=== PATIENT | female | born 1990 | race Two or more races ===

== ENCOUNTER 2019-02-27 14:37 | Emergency (ER) | payer SELFPAY ==
[2019-02-27] MEDS ORDERED: Albuterol 6.7 GM Inhaler INH ONE ×2 (15:05→15:31)
[2019-02-27] MEDS ORDERED: Codeine/Promethazine 10-6.25 MG/5 ML Syrup 5 ML UD Cup PO ONE (16:27)
[2019-02-27] MEDS ORDERED: cefTRIAXone 1 GM, Lidocaine 1% 2.1 ML IM SCH ×2 (16:30)
--- NOTE | 2019-02-27 16:33 | EDM.PDOC ---
ED HPI GENERAL MEDICAL PROBLEM - General Chief Complaint: Fever Stated Complaint: CHEST PAIN, FEVER Time Seen by Provider: 02/27/19 14:42 Source of Information: Reports: Patient, Family History Limitations: Reports: No Limitations - History of Present Illness INITIAL COMMENTS - FREE TEXT/NARRATIVE: The patient presents with a cough, fever, chest tightness and shortness of breath. This has been going on for about 5 days. She also has congestion and runny nose. She has a sore throat. She does not smoke. She has no history of asthma or COPD. Onset: Gradual Duration: Day(s): (5) Location: Reports: Chest Quality: Reports: Other (tightness) Severity: Mild Improves with: Reports: None Worsens with: Reports: None Associated Symptoms: Reports: Cough, Fever/Chills, Shortness of Breath. Denies : Chest Pain, Headaches, Nausea/Vomiting Chest Pain Score (Numeric/FACES): 7 - Related Data Allergies Allergy/AdvReac Type Severity Reaction Status Date / Time No Known Allergies Allergy Verified 02/27/19 14:47 Home Meds: Home Meds Codeine/Promethazine [Phenergan with Codeine] 5 - 10 ml PO Q6HR PRN #300 ml [Rx] Doxycycline [Vibramycin] 100 mg PO BID #14 cap 02/27/19 [Rx] Past Medical History - Past Health History Medical/Surgical History: Denies Medical/Surgical History Social & Family History - Tobacco Use Smoking Status *Q: Never Smoker - Recreational Drug Use Recreational Drug Use: No ED ROS GENERAL - Review of Systems Review Of Systems: See Below Constitutional: Reports: Fever, Chills HEENT: Reports: Throat Pain Respiratory: Reports: Shortness of Breath, Cough Cardiovascular: Reports: Chest Pain (tightness) Endocrine: Reports: No Symptoms GI/Abdominal: Reports: No Symptoms : Reports: No Symptoms Musculoskeletal: Reports: No Symptoms ED EXAM, GENERAL - Physical Exam Exam: See Below Exam Limited By: No Limitations General Appearance: Alert, No Apparent Distress Ears: Normal External Exam Nose: Normal Inspection Throat/Mouth: Other (Mild erythema) Head: Atraumatic, Normocephalic Neck: Normal Inspection, Supple, Non-Tender Respiratory/Chest: No Respiratory Distress, Decreased Breath Sounds, Wheezing ( Mild) Cardiovascular: Regular Rate, Rhythm, No Edema, No Murmur GI/Abdominal: Soft, Non-Tender, No Organomegaly, No Mass Back Exam: Normal Inspection Extremities: Normal Inspection Course - Vital Signs Last Recorded V/S: Last Vital Signs Temp 99.2 F 02/27/19 14:41 Pulse 112 H 02/27/19 14:41 Resp 19 02/27/19 14:41 BP 123/77 02/27/19 14:41 Pulse Ox 97 02/27/19 15:32 - Orders/Labs/Meds Orders: Active Orders 24 hr Category Date Time Status RT Aerosol Therapy [RC] ASDIRECTED Care 02/27/19 15:40 Active RT Post Treatment Assessment [RC] Click to Edit Care 02/27/19 15:06 Active RT Pre-Treatment Assessment [RC] Click to Edit Care 02/27/19 15:06 Active RT Pre-Treatment Assessment [RC] Click to Edit Care 02/27/19 15:31 Inactive CXR [Chest 2V] [CR] Stat Exams 02/27/19 15:05 Taken Codeine/Promethazine [Phenergan with Codeine] Med 02/27/19 16:27 Once 10 ml PO ONETIME ONE cefTRIAXone 1 GM with Lidocaine 1% 2.1 ML IM Med 02/27/19 16:30 Ordered cefTRIAXone [Rocephin] 1 gm Lidocaine 1% [Xylocaine 1%] 2.1 ml IM Q24H Medication Orders Ceftriaxone Sodium 1 gm/ (Lidocaine HCl 2.1 ml) 0 gm IM Q24H SAROJ Promethazine HCl/Codeine (Phenergan With Codeine) 10 ml PO ONETIME ONE Stop: 02/27/19 16:28 Meds: Medications Generic Name Dose Route Start Last Admin Trade Name Freq PRN Reason Stop Dose Admin Ceftriaxone Sodium 1 gm/ 0 gm 02/27/19 16:30 Lidocaine HCl 2.1 ml IM Q24H SAROJ Promethazine HCl/Codeine 10 ml 02/27/19 16:27 Phenergan With Codeine PO 02/27/19 16:28 ONETIME ONE Discontinued Medications Generic Name Dose Route Start Last Admin Trade Name Freq PRN Reason Stop Dose Admin Albuterol 0 gm 02/27/19 15:05 02/27/19 15:26 Proventil Hfa INH 02/27/19 15:06 2 puff ONETIME ONE Administration Albuterol 0 gm 02/27/19 15:31 02/27/19 15:41 Proventil Hfa INH 02/27/19 15:32 Not Given ONETIME ONE - Re-Assessments/Exams Free Text/Narrative Re-Assessment/Exam: 02/27/19 16:32 I ordered a CXR and albuterol inhaler 2 puffs. Her CXR shows a left lower lobe infiltrate. I will get her a shot of rocephin 1 gram IM. I will get her on doxycycline and some phenergan with codeine for the cough. Departure - Departure Time of Disposition: 16:35 Disposition: Home, Self-Care 01 Condition: Good Clinical Impression: Pneumonia Qualifiers: Pneumonia type: due to unspecified organism Laterality: left Lung location: lower lobe of lung Qualified Code(s): J18.1 - Lobar pneumonia, unspecified organism - Discharge Information *PRESCRIPTION DRUG MONITORING PROGRAM REVIEWED*: No *COPY OF PRESCRIPTION DRUG MONITORING REPORT IN PATIENT KHANG: No Prescriptions: Codeine/Promethazine [Phenergan with Codeine] 5 - 10 ml PO Q6HR PRN #300 ml PRN Reason: Cough Doxycycline [Vibramycin] 100 mg PO BID #14 cap Referrals: PCP,None [Primary Care Provider] - Quin Reyez PA-C [Physician It Consultant] - 1 Week Additional Instructions: Take the doxycycline 2 times per day for 7 days. Use the phenergan with codeine 5 to 10mls every 6 hours as needed for cough. Use the albuterol inhaler 2 puffs every 6 hours as needed for shortness of breath and wheezing. Please return if you are worse. - My Orders Last 24 Hours: My Active Orders 02/27/19 15:05 CXR [Chest 2V] [CR] Stat 02/27/19 15:06 RT Post Treatment Assessment [RC] Click to Edit RT Pre-Treatment Assessment [RC] Click to Edit 02/27/19 15:31 RT Pre-Treatment Assessment [RC] Click to Edit 02/27/19 15:40 RT Aerosol Therapy [RC] ASDIRECTED 02/27/19 16:27 Codeine/Promethazine [Phenergan with Codeine] 10 ml PO ONETIME ONE 02/27/19 16:30 cefTRIAXone 1 GM with Lidocaine 1% 2.1 ML IM cefTRIAXone [Rocephin] 1 gm Lidocaine 1% [Xylocaine 1%] 2.1 ml IM Q24H - Assessment/Plan Last 24 Hours: My Active Orders 02/27/19 15:05 CXR [Chest 2V] [CR] Stat 02/27/19 15:06 RT Post Treatment Assessment [RC] Click to Edit RT Pre-Treatment Assessment [RC] Click to Edit 02/27/19 15:31 RT Pre-Treatment Assessment [RC] Click to Edit 02/27/19 15:40 RT Aerosol Therapy [RC] ASDIRECTED 02/27/19 16:27 Codeine/Promethazine [Phenergan with Codeine] 10 ml PO ONETIME ONE 02/27/19 16:30 cefTRIAXone 1 GM with Lidocaine 1% 2.1 ML IM cefTRIAXone [Rocephin] 1 gm Lidocaine 1% [Xylocaine 1%] 2.1 ml IM Q24H
--- NOTE | 2019-02-28 07:34 | CR ---
Chest: Two views of the chest were obtained. Comparison: No previous chest x-ray. Heart size and mediastinum are normal. Increased density is noted within the left lung base. Lungs otherwise are clear. Bony structures are within normal limits for the patient's age. Impression: 1. Increased density within the left lung base most likely representing an area of pneumonia. Diagnostic code #3
== END 2019-02-27 16:50 | disposition home or self-care (01) ==
LOC: JD.ED 14:37
DX: J18.1 Lobar pneumonia, unspecified organism (principal)
CPT/HCPCS: 71046; 94640; 96372; 99285; A9270; J0696; J2001

== ENCOUNTER 2021-06-28 07:50 | Inpatient (IN) | payer BC ==
[2021-06-28] MEDS ORDERED: Nalbuphine 10 MG/1 ML Vial IVPUSH PRN (07:54)
[2021-06-28] MEDS ORDERED: Oxytocin/Lactated Ringers 10 UNIT/1,000 ML BAG IV SCH (08:00)
[2021-06-28] MEDS ORDERED: Lactated Ringers 1,000 ML IV SCH (08:00)
[2021-06-28] MEDS ORDERED: Lidocaine 1% 50 ML MDV ONE (08:11)
[2021-06-28] MEDS ORDERED: Witch Hazel Medicated Pads 40/Jar TOP PRN (08:28)
[2021-06-28] MEDS ORDERED: Benzocaine/Menthol 20%-0.5% Spray 78 GM Cannister TOP PRN (08:28)
[2021-06-28] MEDS: Ibuprofen 600 MG Tab PO PRN ×3 (08:46→22:29)
[2021-06-28] MEDS ORDERED: Sodium Chloride 0.9% 10 ML Syringe FLUSH SCH (09:00)
[2021-06-28] MEDS ORDERED: Docusate Sodium 100 MG Cap PO PRN (20:47)
[2021-06-29] MEDS: Ibuprofen 600 MG Tab PO PRN (03:15)
== END 2021-06-29 11:55 | disposition home or self-care (01) | DRG 560 ==
LOC: JD.OBCHECK 07:50 → JD.OB 07:54 → JD.OBCHECK 07:57 → JD.OB 07:57 → OBSVTOIN 08:03 → JD.OB 14:04
PROVIDERS: ADMIT Obstetrics & Gynecology; ATTEND Obstetrics & Gynecology
PROC: 10E0XZZ Delivery of Products of Conception, External Approach (ICD-10-PCS; principal; 2021-06-28)
PROC: 0HQ9XZZ Repair Perineum Skin, External Approach (ICD-10-PCS; 2021-06-28)
DX: O66.0 Obstructed labor due to shoulder dystocia (principal); Z3A.38 38 weeks gestation of pregnancy; Z37.0 Single live birth; O70.0 First degree perineal laceration during delivery; O98.52 Other viral diseases complicating childbirth; U07.1 COVID-19
CPT/HCPCS: 36415; 59025; 59409; 82947; 85025; 86592; A9270-GY; J2001; U0002

== ENCOUNTER 2021-11-15 00:30 | Emergency (ER) | payer BC ==
[2021-11-15] MEDS ORDERED: HYDROmorphone 0.5 MG/0.5 ML Syringe IVPUSH ONE (02:13)
[2021-11-15] MEDS ORDERED: Ondansetron 4 MG/2 ML SDV IVPUSH ONE (02:13)
[2021-11-15] MEDS ORDERED: Sodium Chloride 0.9% 1,000 ML IV SCH (02:15)
[2021-11-15] MEDS ORDERED: Iopamidol 612 MG/ML 100 ML Bottle IVPUSH ONE (03:05)
[2021-11-15] MEDS ORDERED: Sodium Chloride 0.9% 10 ML Syringe FLUSH PRN (03:05)
== END 2021-11-15 05:16 | disposition home or self-care (01) ==
LOC: JD.ED 00:30
DX: K81.0 Acute cholecystitis (principal); E66.9 Obesity, unspecified; Z68.31 Body mass index [BMI] 31.0-31.9, adult; Z79.899 Other long term (current) drug therapy
CPT/HCPCS: 36415; 74177; 76705; 80053; 83690; 84703; 85007; 85027; 96361; 96374; 96375; 99284; J1170; J2405; J3490; J7030; Q9967

== ENCOUNTER 2022-04-23 00:58 | Emergency (ER) | payer BC ==
[2022-04-23] MEDS ORDERED: Ondansetron 4 MG/2 ML SDV IVPUSH ONE (01:31)
[2022-04-23] MEDS ORDERED: HYDROmorphone 1 MG/ML Syringe IVPUSH ONE (01:31)
[2022-04-23] MEDS ORDERED: Sodium Chloride 0.9% 1,000 ML IV SCH (01:45)
[2022-04-23] MEDS ORDERED: Potassium Chloride 20 MEQ Tab.ER PO ONE (02:25)
== END 2022-04-23 02:54 | disposition home or self-care (01) ==
LOC: JD.ED 00:58
DX: K80.50 Calculus of bile duct without cholangitis or cholecystitis without obstruction (principal); E66.9 Obesity, unspecified; Z68.34 Body mass index [BMI] 34.0-34.9, adult
CPT/HCPCS: 36415; 80053; 83690; 85025; 96361; 96374; 96375; 99284; A9270; J1170; J2405; J7030